=== PATIENT | female | born 2005 | race Caucasian/White ===

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

== ENCOUNTER 2023-02-09 21:04 | Emergency (ER) | payer SELFPAY ==
[2023-02-09 21:42] VITALS: BP 119/59; PULSE 104
[2023-02-09] MEDS ORDERED: Lidocaine 5% 700 MG Patch TOP ONE (22:08)
== END 2023-02-09 22:30 | disposition home or self-care (01) ==
LOC: DL.ED 21:04
DX: U07.1 COVID-19 (principal); M79.10 Myalgia, unspecified site; G89.29 Other chronic pain; M54.6 Pain in thoracic spine; F17.210 Nicotine dependence, cigarettes, uncomplicated; Z91.018 Allergy to other foods; Z88.0 Allergy status to penicillin; Z88.8 Allergy status to other drugs, medicaments and biological substances
CPT/HCPCS: 99282; 99283; A9270-GY

== ENCOUNTER 2023-02-13 02:50 | Emergency (ER) | payer SELFPAY ==
[2023-02-13] MEDS ORDERED: Dexamethasone 4 MG/ML SDV IM ONE (03:04)
[2023-02-13] MEDS ORDERED: Acetaminophen 500 MG Tab PO ONE (03:05)
[2023-02-13 03:42] VITALS: BP 128/84; PULSE 96
== END 2023-02-13 03:38 | disposition home or self-care (01) ==
LOC: DL.ED 02:50
DX: J01.00 Acute maxillary sinusitis, unspecified (principal); Z88.0 Allergy status to penicillin; Z91.018 Allergy to other foods; Z88.8 Allergy status to other drugs, medicaments and biological substances; Z86.16 Personal history of COVID-19
CPT/HCPCS: 96372; 99283; A9270; J1100

== ENCOUNTER 2023-02-25 02:08 | Emergency (ER) | payer SELFPAY ==
[2023-02-25] MEDS ORDERED: Clindamycin HCl 150 MG Cap PO ONE (02:17)
[2023-02-25] MEDS ORDERED: Acetaminophen/oxyCODONE 325-5 MG Tab PO ONE (02:18)
[2023-02-25] MEDS ORDERED: Take Home: Acetaminophen/oxyCODONE 325-5 MG, 5 Tab Pack PO ONE (02:18)
[2023-02-25 02:22] VITALS: BP 142/92; PULSE 110
== END 2023-02-25 02:35 | disposition home or self-care (01) ==
LOC: DL.ED 02:08
DX: K08.89 Other specified disorders of teeth and supporting structures (principal); Z88.0 Allergy status to penicillin; Z79.899 Other long term (current) drug therapy; Z86.16 Personal history of COVID-19; Z88.8 Allergy status to other drugs, medicaments and biological substances
CPT/HCPCS: 99282; 99283; A9270-GY

== ENCOUNTER 2023-03-23 14:56 | Emergency (ER) | payer SELFPAY | END 2023-03-23 15:32 | LOC: DL.ED 14:56 | DX: Z53.21 Procedure and treatment not carried out due to patient leaving prior to being seen by health care provider (principal) ==

== ENCOUNTER 2023-06-07 00:06 | Emergency (ER) | payer SELFPAY ==
[2023-06-07] MEDS: Ondansetron 4 MG Tab.DIS PO ONE (00:53)
[2023-06-07 01:01] LABS: APPEARANCE,URINE CLEAR (CLEAR); BILIRUBIN,URINE NEGATIVE (NEGATIVE); COLOR,URINE YELLOW (YELLOW); GLUCOSE,URINE NEGATIVE (NEGATIVE); KETONES,URINE NEGATIVE (NEGATIVE); LEUKOCYTE ESTERASE,URINE NEGATIVE (NEGATIVE); NITRITE,URINE NEGATIVE (NEGATIVE); OCCULT BLOOD,URINE TRACE-INTACT (NEGATIVE); PH,URINE 6.5 (5.0-9.0); PROTEIN,URINE NEGATIVE (NEGATIVE); UROBILINOGEN,URINE 0.2 mg/dL (0.2-1.0)
[2023-06-07 01:12] LABS: BACTERIA,URINE RARE /HPF (0-FEW/HPF); EPITHELIAL CELLS,URINE RARE /HPF (NOT SEEN); RBC,URINE 0-5 /HPF (0-5); WBC,URINE 0-5 /HPF (0-5/HPF)
[2023-06-07 01:16] VITALS: BP 147/80; PULSE 98
[2023-06-07 01:37] LABS: CORONAVIRUS COVID-19 NAA NEGATIVE (NEGATIVE); INFLUENZA A NAA NEGATIVE (NEGATIVE); INFLUENZA B NAA NEGATIVE (NEGATIVE); RESPIRATORY SYNCYTIAL VIR NAA NEGATIVE (NEGATIVE)
[2023-06-07] MEDS: Sodium Chloride 0.9% 10 ML Syringe FLUSH PRN (01:51)
[2023-06-07] MEDS: Sodium Chloride 0.9% 1,000 ML IV ONE (01:51)
[2023-06-07] MEDS: Take Home: Ondansetron 4 MG Tab.DIS, 5 Tab Pack PO ONE (02:07)
== END 2023-06-07 02:11 | disposition home or self-care (01) ==
LOC: DL.ED 00:06
DX: R42 Dizziness and giddiness (principal); R11.0 Nausea; F17.210 Nicotine dependence, cigarettes, uncomplicated; Z79.899 Other long term (current) drug therapy; Z88.0 Allergy status to penicillin; Z88.8 Allergy status to other drugs, medicaments and biological substances; Z91.018 Allergy to other foods; Z86.16 Personal history of COVID-19
CPT/HCPCS: 0241U; 81001; 81025; 99284; A9270-GY; J3490; J7030; Q0162

== ENCOUNTER 2023-06-26 23:32 | Emergency (ER) | payer SELFPAY ==
[2023-06-27 00:30] VITALS: BP 135/84; PULSE 79
[2023-06-27] MEDS: Lidocaine 2% Jelly 10 ML Urojet MUCMEM ONE (01:32)
== END 2023-06-27 01:36 | disposition home or self-care (01) ==
LOC: DL.ED 23:32
DX: K08.89 Other specified disorders of teeth and supporting structures (principal); F17.210 Nicotine dependence, cigarettes, uncomplicated; Z91.018 Allergy to other foods; Z88.0 Allergy status to penicillin; Z88.8 Allergy status to other drugs, medicaments and biological substances; Z86.16 Personal history of COVID-19; Z79.899 Other long term (current) drug therapy
CPT/HCPCS: 99282; A9270

== ENCOUNTER 2023-07-07 23:07 | Emergency (ER) | payer SELFPAY ==
[2023-07-07 23:24] VITALS: BP 143/85; PULSE 94
== END 2023-07-07 23:44 | disposition home or self-care (01) ==
LOC: DL.ED 23:07
DX: L03.031 Cellulitis of right toe (principal); Z91.018 Allergy to other foods; Z88.0 Allergy status to penicillin; Z88.8 Allergy status to other drugs, medicaments and biological substances; Z86.16 Personal history of COVID-19; Z79.899 Other long term (current) drug therapy
CPT/HCPCS: 99283

== ENCOUNTER 2023-07-28 12:38 | Emergency (ER) | payer SELFPAY ==
[2023-07-28] MEDS ORDERED: Bupivacaine 0.5% 30 ML SDV INFILT ONE (12:53)
[2023-07-28 12:57] VITALS: BP 164/97; PULSE 100
== END 2023-07-28 13:20 | disposition home or self-care (01) ==
LOC: DL.ED 12:38
DX: K08.89 Other specified disorders of teeth and supporting structures (principal); F17.210 Nicotine dependence, cigarettes, uncomplicated; Z91.018 Allergy to other foods; Z88.0 Allergy status to penicillin; Z88.8 Allergy status to other drugs, medicaments and biological substances; Z79.899 Other long term (current) drug therapy; Z86.16 Personal history of COVID-19
CPT/HCPCS: 64400; 99282; 99282-25

== ENCOUNTER 2023-07-31 16:11 | Emergency (ER) | payer SELFPAY ==
[2023-07-31] MEDS: Acetaminophen/HYDROcodone 325-10 MG Tab PO ONE (16:40)
[2023-07-31] MEDS: Bupivacaine 0.5% 30 ML SDV INFILT ONE (16:43)
== END 2023-07-31 16:54 | disposition home or self-care (01) ==
LOC: DL.ED 16:11
DX: K08.89 Other specified disorders of teeth and supporting structures (principal); F17.210 Nicotine dependence, cigarettes, uncomplicated; Z86.16 Personal history of COVID-19; Z88.0 Allergy status to penicillin; Z88.8 Allergy status to other drugs, medicaments and biological substances; Z91.018 Allergy to other foods
CPT/HCPCS: 64400; 99282; A9270; J0665

== ENCOUNTER 2023-08-01 16:55 | Emergency (ER) | payer SELFPAY ==
[2023-08-01 17:08] VITALS: BP 139/78; PULSE 96
== END 2023-08-01 17:27 | disposition home or self-care (01) ==
LOC: DL.ED 16:55
DX: K08.89 Other specified disorders of teeth and supporting structures (principal); Z91.018 Allergy to other foods; Z88.0 Allergy status to penicillin; Z88.8 Allergy status to other drugs, medicaments and biological substances; Z79.899 Other long term (current) drug therapy; Z86.16 Personal history of COVID-19
CPT/HCPCS: 64400; 99282; 99282-25

== ENCOUNTER 2023-09-29 23:24 | Emergency (ER) | payer MEDICAID ==
[2023-09-29 23:46] VITALS: BP 147/93; PULSE 109
[2023-09-30] MEDS: Silver Sulfadiazine 1% Crm 50 GM Tube TOP ONE (00:38)
== END 2023-09-30 00:42 | disposition home or self-care (01) ==
LOC: DL.ED 23:24
DX: T23.222A Burn of second degree of single left finger (nail) except thumb, initial encounter (principal); F17.290 Nicotine dependence, other tobacco product, uncomplicated; Z91.018 Allergy to other foods; Z88.0 Allergy status to penicillin; Z88.8 Allergy status to other drugs, medicaments and biological substances; Z79.899 Other long term (current) drug therapy; Z86.16 Personal history of COVID-19; X58.XXXA Exposure to other specified factors, initial encounter; Y93.89 Activity, other specified
CPT/HCPCS: 16020; 99282; 99283-25

== ENCOUNTER 2023-10-10 22:49 | Emergency (ER) | payer MEDICAID ==
[2023-10-11 00:47] VITALS: BP 145/73; PULSE 74
[2023-10-11] MEDS: Ketorolac 30 MG/ML SDV IVPUSH ONE (00:56)
[2023-10-11 00:57] LABS: BASOPHILS PERCENT AUTO 0.2 % (0.0-1.0); EOSINOPHILS PERCENT AUTO 2.3 % (1.0-3.0); HEMATOCRIT 37.8 % (37.0-47.0); HEMOGLOBIN 12.5 g/dL (12.0-16.0); LYMPHOCYTES PERCENT AUTO 32.3 % (20.5-50.1); MEAN CORPUSCULAR HEMOGLOBIN 26.8 pg (27.0-34.0); MEAN CORPUSCULAR HGB CONC 33.1 g/dL (33.0-35.0); MEAN CORPUSCULAR VOLUME 81.1 fL (80-100); MONOCYTES PERCENT AUTO 7.4 % (2-8); NEUTROPHILS PERCENT AUTO 57.8 % (42.2-75.2); PLATELET COUNT,PLT 361 10^3/uL (150-450); RED BLOOD CELL COUNT 4.66 10^6/uL (4.2-5.4); WHITE BLOOD CELL COUNT,WBC 9.4 10^3/uL (5.0-10.0)
[2023-10-11 01:04] LABS: APPEARANCE,URINE CLEAR (CLEAR); BILIRUBIN,URINE NEGATIVE (NEGATIVE); COLOR,URINE YELLOW (YELLOW); GLUCOSE,URINE NEGATIVE (NEGATIVE); KETONES,URINE NEGATIVE (NEGATIVE); LEUKOCYTE ESTERASE,URINE NEGATIVE (NEGATIVE); NITRITE,URINE NEGATIVE (NEGATIVE); OCCULT BLOOD,URINE NEGATIVE (NEGATIVE); PH,URINE 6.5 (5.0-9.0); PROTEIN,URINE NEGATIVE (NEGATIVE); UROBILINOGEN,URINE 0.2 mg/dL (0.2-1.0)
[2023-10-11 01:06] LABS: AMPHETAMINES,URINE NEGATIVE (NEGATIVE); BARBITURATES,URINE NEGATIVE (NEGATIVE); BENZODIAZEPINE,URINE NEGATIVE (NEGATIVE); MDMA (ECSTASY), URINE NEGATIVE (NEGATIVE); METHADONE,URINE NEGATIVE (NEGATIVE); METHAMPHETAMINES,URINE NEGATIVE (NEGATIVE); OPIATES,URINE NEGATIVE (NEGATIVE); OXYCODONE,URINE NEGATIVE (NEGATIVE); PHENCYCLIDINE,URINE NEGATIVE (NEGATIVE); TCA,URINE NEGATIVE (NEGATIVE)
[2023-10-11 01:16] LABS: ALBUMIN 3.6 g/dL (3.4-5.0); ANION GAP 12.5 mEq/L (7-13); BILIRUBIN TOTAL 0.4 mg/dL (0.2-1.0); BUN/CREATININE RATIO 8.8 (No establ ref range); CALCIUM 8.7 mg/dL (8.5-10.1); CREATININE 0.8 mg/dL (0.55-1.02); EST CRCL DRUG DOSING (CG) 109.99 mL/min; POTASSIUM,K 3.5 mmol/L (3.5-5.1); PROTEIN TOTAL,TP 7.2 g/dL (6.4-8.2)
== END 2023-10-11 01:53 | disposition home or self-care (01) ==
LOC: DL.ED 22:49
DX: K59.00 Constipation, unspecified (principal); Z88.0 Allergy status to penicillin; Z91.018 Allergy to other foods; Z88.8 Allergy status to other drugs, medicaments and biological substances; Z79.899 Other long term (current) drug therapy; Z86.16 Personal history of COVID-19
CPT/HCPCS: 36415; 74018; 80053; 80305; 81003; 81025; 83690; 85025; 96374; 99283; 99284; J1885

== ENCOUNTER 2023-12-20 17:32 | Emergency (ER) | payer MEDICAID ==
[2023-12-20] MEDS: Iopamidol 612 MG/ML 100 ML Bottle IVPUSH ONE (18:09)
[2023-12-20 18:15] LABS: BASOPHILS PERCENT AUTO 0.2 % (0.0-1.0); EOSINOPHILS PERCENT AUTO 1.5 % (1.0-3.0); HEMATOCRIT 37.4 % (37.0-47.0); HEMOGLOBIN 12.1 g/dL (12.0-16.0); LYMPHOCYTES PERCENT AUTO 24.6 % (20.5-50.1); MEAN CORPUSCULAR HEMOGLOBIN 26.5 pg (27.0-34.0); MEAN CORPUSCULAR HGB CONC 32.4 g/dL (33.0-35.0); MONOCYTES PERCENT AUTO 7.1 % (2-8); NEUTROPHILS PERCENT AUTO 66.6 % (42.2-75.2); PLATELET COUNT,PLT 317 10^3/uL (150-450); RED BLOOD CELL COUNT 4.56 10^6/uL (4.2-5.4); WHITE BLOOD CELL COUNT,WBC 9.2 10^3/uL (5.0-10.0)
[2023-12-20 18:35] LABS: ALBUMIN 3.4 g/dL (3.4-5.0); ANION GAP 9.5 mEq/L (7-13); BILIRUBIN TOTAL 0.4 mg/dL (0.2-1.0); BUN/CREATININE RATIO 9.1 (No establ ref range); CALCIUM 8.5 mg/dL (8.5-10.1); CREATININE 0.88 mg/dL (0.55-1.02); EST CRCL DRUG DOSING (CG) 95.46 mL/min; POTASSIUM,K 3.5 mmol/L (3.5-5.1); PROTEIN TOTAL,TP 6.7 g/dL (6.4-8.2)
[2023-12-20 18:39] LABS: LACTIC ACID 1.1 mmol/L (0.4-2.0)
[2023-12-20 19:03] LABS: APPEARANCE,URINE CLEAR (CLEAR); BILIRUBIN,URINE NEGATIVE (NEGATIVE); COLOR,URINE YELLOW (YELLOW); GLUCOSE,URINE NEGATIVE (NEGATIVE); KETONES,URINE NEGATIVE (NEGATIVE); LEUKOCYTE ESTERASE,URINE NEGATIVE (NEGATIVE); NITRITE,URINE NEGATIVE (NEGATIVE); OCCULT BLOOD,URINE NEGATIVE (NEGATIVE); PROTEIN,URINE NEGATIVE (NEGATIVE); UROBILINOGEN,URINE 0.2 mg/dL (0.2-1.0)
[2023-12-20 19:05] VITALS: BP 115/67; PULSE 94
[2023-12-20 20:01] LABS: CORONAVIRUS COVID-19 NAA NEGATIVE (NEGATIVE); INFLUENZA A NAA NEGATIVE (NEGATIVE); INFLUENZA B NAA NEGATIVE (NEGATIVE)
[2023-12-22 13:47] LABS: C.TRACHOMATIS BY TMA Negative (Negative); N.GONORRHOEAE BY TMA Negative (Negative); SOURCE URINE
== END 2023-12-20 20:00 | disposition home or self-care (01) ==
LOC: DL.ED 17:32
DX: R10.30 Lower abdominal pain, unspecified (principal); Z86.16 Personal history of COVID-19; Z88.0 Allergy status to penicillin; Z88.1 Allergy status to other antibiotic agents; Z88.8 Allergy status to other drugs, medicaments and biological substances; Z91.018 Allergy to other foods
CPT/HCPCS: 0240U; 36415; 74177; 76856; 80053; 81003; 81025; 83605; 83690; 85025; 87491; 87591; 99284; Q9967

== ENCOUNTER 2023-12-22 00:35 | Emergency (ER) | payer MEDICAID ==
[2023-12-22 00:57] VITALS: BP 132/78; PULSE 90
[2023-12-22] MEDS: Dexamethasone 4 MG/ML SDV IM ONE (01:04)
== END 2023-12-22 01:13 | disposition home or self-care (01) ==
LOC: DL.ED 00:35
DX: M54.50 Low back pain, unspecified (principal); Z86.16 Personal history of COVID-19; Z91.018 Allergy to other foods; Z88.1 Allergy status to other antibiotic agents; Z88.0 Allergy status to penicillin; Z88.9 Allergy status to unspecified drugs, medicaments and biological substances
CPT/HCPCS: 96372; 99283; J1100

== ENCOUNTER 2024-01-01 11:52 | Emergency (ER) | payer MEDICAID | END 2024-01-01 12:19 | LOC: DL.ED 11:52 | DX: Z53.21 Procedure and treatment not carried out due to patient leaving prior to being seen by health care provider (principal) ==

== ENCOUNTER 2024-01-07 22:12 | Emergency (ER) | payer OTHER, MEDICAID ==
[2024-01-07 22:34] VITALS: BP 125/88; PULSE 113
[2024-01-07] MEDS: Take Home: LORazepam 1 MG Tab, 2 Tab Pack PO ONE (22:40)
== END 2024-01-07 22:48 | disposition home or self-care (01) ==
LOC: DL.ED 22:12
DX: F41.9 Anxiety disorder, unspecified (principal); Z86.16 Personal history of COVID-19; Z88.0 Allergy status to penicillin; Z88.1 Allergy status to other antibiotic agents; Z88.8 Allergy status to other drugs, medicaments and biological substances; Z91.018 Allergy to other foods; V89.2XXA Person injured in unspecified motor-vehicle accident, traffic, initial encounter; Y92.410 Unspecified street and highway as the place of occurrence of the external cause
CPT/HCPCS: 99283; A9270-GY

== ENCOUNTER 2024-01-24 15:47 | Emergency (ER) | payer MEDICAID | END 2024-01-24 16:16 | disposition left against medical advice (07) | LOC: DL.ED 15:47 | DX: Z53.21 Procedure and treatment not carried out due to patient leaving prior to being seen by health care provider (principal) ==

== ENCOUNTER 2024-01-28 23:13 | Emergency (ER) | payer MEDICAID ==
[2024-01-29 00:15] LABS: APPEARANCE,URINE CLEAR (CLEAR); BILIRUBIN,URINE NEGATIVE (NEGATIVE); COLOR,URINE YELLOW (YELLOW); GLUCOSE,URINE NEGATIVE (NEGATIVE); KETONES,URINE NEGATIVE (NEGATIVE); LEUKOCYTE ESTERASE,URINE NEGATIVE (NEGATIVE); NITRITE,URINE NEGATIVE (NEGATIVE); OCCULT BLOOD,URINE NEGATIVE (NEGATIVE); PROTEIN,URINE NEGATIVE (NEGATIVE); UROBILINOGEN,URINE 0.2 mg/dL (0.2-1.0)
[2024-01-29 00:40] VITALS: BP 121/68; PULSE 79
== END 2024-01-29 00:42 | disposition home or self-care (01) ==
LOC: DL.ED 23:13
DX: R10.30 Lower abdominal pain, unspecified (principal); Z86.16 Personal history of COVID-19; Z88.0 Allergy status to penicillin; Z88.1 Allergy status to other antibiotic agents; Z91.018 Allergy to other foods; Z79.1 Long term (current) use of non-steroidal anti-inflammatories (NSAID)
CPT/HCPCS: 81003; 81025; 99283; 99284

== ENCOUNTER 2024-02-02 20:37 | Emergency (ER) | payer MEDICAID ==
[2024-02-02 21:11] LABS: BASOPHILS PERCENT AUTO 0.1 % (0.0-1.0); EOSINOPHILS PERCENT AUTO 1.2 % (1.0-3.0); HEMATOCRIT 38.6 % (37.0-47.0); HEMOGLOBIN 12.6 g/dL (12.0-16.0); LYMPHOCYTES PERCENT AUTO 22.7 % (20.5-50.1); MEAN CORPUSCULAR HEMOGLOBIN 26.9 pg (27.0-34.0); MEAN CORPUSCULAR HGB CONC 32.6 g/dL (33.0-35.0); MEAN CORPUSCULAR VOLUME 82.3 fL (80-100); MONOCYTES PERCENT AUTO 8.2 % (2-8); NEUTROPHILS PERCENT AUTO 67.8 % (42.2-75.2); PLATELET COUNT,PLT 352 10^3/uL (150-450); RED BLOOD CELL COUNT 4.69 10^6/uL (4.2-5.4); WHITE BLOOD CELL COUNT,WBC 13.5 10^3/uL (5.0-10.0)
[2024-02-02 21:31] LABS: A/G RATIO 1.1; ALBUMIN 3.5 g/dL (3.4-5.0); ANION GAP 10.8 mEq/L (7-13); BILIRUBIN TOTAL 0.2 mg/dL (0.2-1.0); CALCIUM 8.9 mg/dL (8.5-10.1); CREATININE 0.89 mg/dL (0.55-1.02); EST CRCL DRUG DOSING (CG) 90.73 mL/min; POTASSIUM,K 3.8 mmol/L (3.5-5.1); PROTEIN TOTAL,TP 6.7 g/dL (6.4-8.2)
[2024-02-02 22:26] VITALS: BP 119/64; PULSE 85
== END 2024-02-02 22:25 | disposition home or self-care (01) ==
LOC: DL.ED 20:37
DX: R06.02 Shortness of breath (principal); Z86.16 Personal history of COVID-19; Z79.899 Other long term (current) drug therapy; Z91.018 Allergy to other foods; Z88.0 Allergy status to penicillin; Z88.1 Allergy status to other antibiotic agents; Z88.9 Allergy status to unspecified drugs, medicaments and biological substances
CPT/HCPCS: 36415; 71045; 80053; 85025; 99285

== ENCOUNTER 2024-03-06 18:07 | Emergency (ER) | payer MEDICAID ==
[2024-03-06 18:26] VITALS: BP 140/95; PULSE 81
[2024-03-06 18:31] LABS: BILIRUBIN,URINE NEGATIVE (NEGATIVE); COLOR,URINE YELLOW (YELLOW); GLUCOSE,URINE NEGATIVE (NEGATIVE); KETONES,URINE NEGATIVE (NEGATIVE); LEUKOCYTE ESTERASE,URINE TRACE (NEGATIVE); NITRITE,URINE NEGATIVE (NEGATIVE); OCCULT BLOOD,URINE LARGE (NEGATIVE); PROTEIN,URINE NEGATIVE (NEGATIVE); UROBILINOGEN,URINE 0.2 mg/dL (0.2-1.0)
[2024-03-06] MEDS: Acetaminophen 325 MG Tab PO ONE (18:34)
[2024-03-06] MEDS: Dicyclomine 10 MG Cap PO ONE (18:34)
[2024-03-06 18:35] LABS: APPEARANCE,URINE SLIGHTLY CLOUDY (CLEAR)
[2024-03-06 18:51] LABS: AMORPHOUS SEDIMENT,URINE FEW /HPF (NOT SEEN); BACTERIA,URINE FEW /HPF (0-FEW/HPF); EPITHELIAL CELLS,URINE FEW /HPF (NOT SEEN); MUCUS,URINE FEW /LPF (NOT SEEN)
== END 2024-03-06 19:03 | disposition home or self-care (01) ==
LOC: DL.ED 18:07
DX: R10.30 Lower abdominal pain, unspecified (principal); Z86.16 Personal history of COVID-19; Z88.0 Allergy status to penicillin; Z88.8 Allergy status to other drugs, medicaments and biological substances; Z91.018 Allergy to other foods; Z79.899 Other long term (current) drug therapy
CPT/HCPCS: 81001; 81025; 87086; 99284; A9270

== ENCOUNTER 2024-03-18 23:05 | Emergency (ER) | payer MEDICAID ==
[2024-03-19 00:01] VITALS: BP 117/70; PULSE 79
[2024-03-19] MEDS: Acetaminophen 325 MG Tab PO ONE (00:17)
== END 2024-03-19 00:27 | disposition home or self-care (01) ==
LOC: DL.ED 23:05
DX: B02.9 Zoster without complications (principal); Z86.16 Personal history of COVID-19; Z88.0 Allergy status to penicillin; Z88.8 Allergy status to other drugs, medicaments and biological substances; Z91.018 Allergy to other foods; Z79.899 Other long term (current) drug therapy
CPT/HCPCS: 99283; A9270; 99282

== ENCOUNTER 2024-04-24 19:06 | Emergency (ER) | payer MEDICAID ==
[2024-04-24 19:38] VITALS: BP 119/89; PULSE 99
[2024-04-24 19:50] LABS: APPEARANCE,URINE SLIGHTLY CLOUDY (CLEAR); BILIRUBIN,URINE NEGATIVE (NEGATIVE); COLOR,URINE YELLOW (YELLOW); GLUCOSE,URINE NEGATIVE (NEGATIVE); KETONES,URINE NEGATIVE (NEGATIVE); LEUKOCYTE ESTERASE,URINE NEGATIVE (NEGATIVE); NITRITE,URINE NEGATIVE (NEGATIVE); OCCULT BLOOD,URINE NEGATIVE (NEGATIVE); PROTEIN,URINE NEGATIVE (NEGATIVE); UROBILINOGEN,URINE 0.2 mg/dL (0.2-1.0)
[2024-04-24] MEDS: Azithromycin 250 MG Tab PO ONE (20:28)
[2024-04-24] MEDS: Take Home: Ondansetron 4 MG Tab.DIS, 5 Tab Pack PO ONE (20:28)
== END 2024-04-24 20:36 ==
LOC: DL.ED 19:06
DX: J32.9 Chronic sinusitis, unspecified (principal); J06.9 Acute upper respiratory infection, unspecified; Z86.16 Personal history of COVID-19; Z88.0 Allergy status to penicillin; Z88.8 Allergy status to other drugs, medicaments and biological substances; Z91.018 Allergy to other foods; Z79.899 Other long term (current) drug therapy
CPT/HCPCS: 81003; 81025; 87428; 99283; 99284; A9270; Q0162

== ENCOUNTER 2024-04-29 21:33 | Emergency (ER) | payer MEDICAID ==
[2024-04-29 22:26] VITALS: BP 125/80; PULSE 71
== END 2024-04-29 22:54 | disposition home or self-care (01) ==
LOC: DL.ED 21:33
DX: S60.221A Contusion of right hand, initial encounter (principal); Z88.0 Allergy status to penicillin; Z88.8 Allergy status to other drugs, medicaments and biological substances; Z91.018 Allergy to other foods; Z79.899 Other long term (current) drug therapy; Z86.16 Personal history of COVID-19; W22.8XXA Striking against or struck by other objects, initial encounter
CPT/HCPCS: 73130-RT; 99284

== ENCOUNTER 2024-05-05 21:36 | Emergency (ER) | payer MEDICAID ==
[2024-05-05] MEDS: Acetaminophen 325 MG Tab PO ONE (22:19)
[2024-05-05] MEDS: Albuterol/Ipratropium 3.0-0.5 MG/3 ML Neb Soln NEB ONE (22:29)
[2024-05-05 23:15] VITALS: BP 115/74; PULSE 104
== END 2024-05-05 23:14 | disposition home or self-care (01) ==
LOC: DL.ED 21:36
DX: J10.1 Influenza due to other identified influenza virus with other respiratory manifestations (principal); Z88.0 Allergy status to penicillin; Z91.018 Allergy to other foods; Z88.8 Allergy status to other drugs, medicaments and biological substances; Z79.899 Other long term (current) drug therapy; Z86.16 Personal history of COVID-19
CPT/HCPCS: 71046; 87428; 99282; 99285; A9270; J7620-GY

== ENCOUNTER 2024-05-24 19:44 | Emergency (ER) | payer MEDICAID ==
[2024-05-24] MEDS: Bacitracin Oint 1 GM U/D Packet TOP ONE (20:06)
== END 2024-05-24 20:12 | disposition home or self-care (01) ==
LOC: DL.ED 19:44
DX: T20.512A Corrosion of first degree of left ear [any part, except ear drum], initial encounter (principal); T20.511A Corrosion of first degree of right ear [any part, except ear drum], initial encounter; Z86.16 Personal history of COVID-19; Z88.0 Allergy status to penicillin; Z88.1 Allergy status to other antibiotic agents; Z88.8 Allergy status to other drugs, medicaments and biological substances; Z91.018 Allergy to other foods; Z79.899 Other long term (current) drug therapy
CPT/HCPCS: 99283; A9270

== ENCOUNTER 2024-06-15 12:37 | Emergency (ER) | payer MEDICAID ==
[2024-06-15 12:45] VITALS: BP 136/71; PULSE 100
[2024-06-15] MEDS: Triamcinolone Acetonide 0.1% Crm 15 GM Tube TOP ONE (12:49)
== END 2024-06-15 12:57 | disposition home or self-care (01) ==
LOC: DL.ED 12:37
DX: T49.4X1A Poisoning by keratolytics, keratoplastics, and other hair treatment drugs and preparations, accidental (unintentional), initial encounter (principal); L24.5 Irritant contact dermatitis due to other chemical products; Z88.8 Allergy status to other drugs, medicaments and biological substances; Z88.1 Allergy status to other antibiotic agents; Z88.0 Allergy status to penicillin; Z91.018 Allergy to other foods; Z79.1 Long term (current) use of non-steroidal anti-inflammatories (NSAID); Z86.16 Personal history of COVID-19
CPT/HCPCS: 99282; 99283; A9270

== ENCOUNTER 2024-11-18 11:02 | Emergency (ER) | payer MEDICAID ==
[2024-11-18 11:33] VITALS: BP 128/82; PULSE 84
[2024-11-18 11:47] LABS: APPEARANCE,URINE CLEAR (CLEAR); GLUCOSE,URINE NEGATIVE (NEGATIVE); OCCULT BLOOD,URINE NEGATIVE (NEGATIVE)
== END 2024-11-18 13:26 | disposition home or self-care (01) ==
LOC: DL.ED 11:02
DX: O36.71X0 Maternal care for viable fetus in abdominal pregnancy, first trimester, not applicable or unspecified (principal); O99.331 Smoking (tobacco) complicating pregnancy, first trimester; F17.210 Nicotine dependence, cigarettes, uncomplicated; Z88.8 Allergy status to other drugs, medicaments and biological substances; Z88.0 Allergy status to penicillin; Z91.018 Allergy to other foods; Z3A.10 10 weeks gestation of pregnancy; Z88.1 Allergy status to other antibiotic agents; Z79.899 Other long term (current) drug therapy; Z86.16 Personal history of COVID-19
CPT/HCPCS: 36415; 76815; 81003; 81025; 84702; 99283; 99284

== ENCOUNTER 2024-11-30 20:03 | Emergency (ER) | payer MEDICAID ==
[2024-11-30 20:55] LABS: BASOPHILS PERCENT AUTO 0.3 % (0.0-1.0); EOSINOPHILS PERCENT AUTO 2.9 % (1.0-3.0); LYMPHOCYTES PERCENT AUTO 37.3 % (20.5-50.1); MONOCYTES PERCENT AUTO 8.3 % (2-8); NEUTROPHILS PERCENT AUTO 51.2 % (42.2-75.2); PLATELET COUNT,PLT 283 10^3/uL (150-450); RED BLOOD CELL COUNT 4.20 10^6/uL (4.2-5.4); WHITE BLOOD CELL COUNT,WBC 7.0 10^3/uL (5.0-10.0)
[2024-11-30 20:57] LABS: APPEARANCE,URINE CLEAR (CLEAR); GLUCOSE,URINE NEGATIVE (NEGATIVE); OCCULT BLOOD,URINE SMALL (NEGATIVE)
[2024-11-30 21:12] LABS: A/G RATIO 1.0; ALANINE AMINOTRANSFERASE,ALT 23 U/L (14-59); ASPARTATE AMNIOTRANSFERASE,AST 18 U/L (15-37); BILIRUBIN TOTAL 0.3 mg/dL (0.2-1.0); BLOOD UREA NITROGEN,BUN 7 mg/dL (7-18); CARBON DIOXIDE,CO2 25 mmol/L (21-32); CHLORIDE,CL 104 mmol/L (98-107); CREATININE 0.64 mg/dL (0.55-1.02); EST CRCL DRUG DOSING (CG) 135.22 mL/min; GLUCOSE RANDOM 89 mg/dL (70-99); POTASSIUM,K 3.3 mmol/L (3.5-5.1); PROTEIN TOTAL,TP 7.1 g/dL (6.4-8.2); SODIUM,NA 140 mmol/L (136-145)
[2024-11-30 21:13] LABS: ESTIMATED GFR 129 mL/min (>=60)
[2024-11-30 21:18] LABS: HCG QUALITATIVE,SERUM POSITIVE (NEGATIVE)
[2024-11-30 21:19] LABS: EPITHELIAL CELLS,URINE MODERATE /HPF (NOT SEEN)
[2024-11-30] MEDS: Take Home: Acetaminophen/HYDROcodone 325-5 MG, 5 Tab Pack PO ONE (21:41)
[2024-11-30 21:44] VITALS: BP 135/81; PULSE 88
== END 2024-11-30 21:40 | disposition home or self-care (01) ==
LOC: DL.ED 20:03
DX: O02.1 Missed abortion (principal); F17.200 Nicotine dependence, unspecified, uncomplicated; Z86.16 Personal history of COVID-19; Z88.0 Allergy status to penicillin
CPT/HCPCS: 36415; 80053; 81001; 84702; 84703; 85025; 86850; 86900; 86901; 99284; A9270

== ENCOUNTER 2024-12-03 08:42 | Day surgery (SDC) | payer MEDICAID ==
[~2024-12-03 08:42] MED LIST: Oxytocin/Lactated Ringers 30 UNIT/500 ML BAG IV SCH; Sodium Chloride 0.9% 10 ML Syringe FLUSH PRN
[2024-12-03] MEDS ORDERED: Ketorolac 30 MG/ML SDV IVPUSH ONE (08:43)
[2024-12-03] MEDS ORDERED: Midazolam 1 MG/ML 2 ML SDV IV ONE (08:43)
[2024-12-03] MEDS ORDERED: Dexamethasone 4 MG/ML SDV IV ONE (08:43)
[2024-12-03] MEDS ORDERED: Ondansetron 4 MG/2 ML SDV IV ONE (08:43)
[2024-12-03] MEDS ORDERED: fentaNYL 100 MCG/2 ML SDV IV ONE (08:43)
[2024-12-03] MEDS ORDERED: Propofol 200 MG/20 ML SDV IV ONE (08:43)
[2024-12-03] MEDS ORDERED: Ondansetron 4 MG/2 ML SDV IVPUSH PRN (10:11)
[2024-12-03] MEDS ORDERED: Acetaminophen/oxyCODONE 325-5 MG Tab PO PRN (10:11)
[2024-12-03] MEDS: Lactated Ringers 1,000 ML IV SCH (10:35)
[2024-12-03] MEDS: Scopalamine 1mg/3day Transdermal Patch TRDERM ONE (11:14)
[2024-12-03] MEDS ORDERED: Dexamethasone 4 MG/ML SDV ONE (12:47)
[2024-12-03] MEDS ORDERED: Ketorolac 30 MG/ML SDV ONE (12:47)
[2024-12-03] MEDS ORDERED: Ondansetron 4 MG/2 ML SDV ONE (12:47)
[2024-12-03 13:51] VITALS: BP 116/68; PULSE 62
== END 2024-12-03 13:33 | disposition home or self-care (01) ==
LOC: DL.SDS 08:42
PROVIDERS: ATTEND Family Medicine
DX: O03.4 Incomplete spontaneous abortion without complication (principal); Z88.1 Allergy status to other antibiotic agents; Z88.8 Allergy status to other drugs, medicaments and biological substances; Z87.891 Personal history of nicotine dependence; Z79.899 Other long term (current) drug therapy; Z91.018 Allergy to other foods
CPT/HCPCS: 01965; 59812; 76857; A9270; J1100; J1885; J2003; J2250; J2405; J2704; J3010; J7120

== ENCOUNTER 2024-12-09 20:56 | Emergency (ER) | payer MEDICAID ==
[2024-12-09 21:33] VITALS: BP 122/65; PULSE 88
== END 2024-12-09 21:49 | disposition left against medical advice (07) ==
LOC: DL.ED 20:56
DX: Z53.21 Procedure and treatment not carried out due to patient leaving prior to being seen by health care provider (principal)

== ENCOUNTER 2025-02-13 21:39 | Emergency (ER) | payer MEDICAID ==
[2025-02-13 21:57] VITALS: BP 115/66; PULSE 88
[2025-02-13] MEDS: Ketorolac 30 MG/ML SDV IM ONE (22:07)
== END 2025-02-13 22:25 | disposition home or self-care (01) ==
LOC: DL.ED 21:39
DX: S39.012A Strain of muscle, fascia and tendon of lower back, initial encounter (principal); E66.9 Obesity, unspecified; Z86.16 Personal history of COVID-19; Z88.8 Allergy status to other drugs, medicaments and biological substances; Z91.018 Allergy to other foods; Z88.1 Allergy status to other antibiotic agents; Z68.38 Body mass index [BMI] 38.0-38.9, adult; X50.9XXA Other and unspecified overexertion or strenuous movements or postures, initial encounter
CPT/HCPCS: 96372; 99283; A9270; J1885